=== PATIENT | male | born 1995 | race Two or more races ===

== ENCOUNTER 2023-06-02 20:39 | Emergency (ER) | payer OTHER | END 2023-06-03 01:22 | disposition left against medical advice (07) | LOC: ER 20:39 | DX: M25.522 Pain in left elbow (principal); Z53.21 Procedure and treatment not carried out due to patient leaving prior to being seen by health care provider; W18.39XA Other fall on same level, initial encounter; Y93.9 Activity, unspecified; Y92.9 Unspecified place or not applicable; Y99.9 Unspecified external cause status ==

== ENCOUNTER 2023-06-13 11:48 | Emergency (ER) | payer OTHER ==
[~2023-06-13] VITALS: Ht 170.2 cm; Wt 71.5 kg
[2023-06-13 12:17] VITALS: BP 139/88; PULSE 82; RESP 18; TEMP 98.3; O2SAT 97
[2023-06-13] MEDS ORDERED: IBUP-1456 PO (14:13)
== END 2023-06-13 14:14 | disposition home or self-care (01) ==
LOC: ER 11:48
DX: S50.02XA Contusion of left elbow, initial encounter (principal); X58.XXXA Exposure to other specified factors, initial encounter; Y93.89 Activity, other specified; Y92.89 Other specified places as the place of occurrence of the external cause; Y99.8 Other external cause status
CPT/HCPCS: 73080

== ENCOUNTER 2024-08-27 23:09 | Inpatient (IN) | payer OTHER ==
[~2024-08-27] VITALS: Ht 170.2 cm; Wt 79.8 kg
[~2024-08-27 23:09] MED LIST: IBUP-1456 PO
--- NOTE | 2024-08-27 23:22 | ED.PDOC ---
Altered Mental Status HPI Comments HPI: Poor Historian. 28 y/o M is [id number] ambulance for c/o possible overdose, today. Per EMS report, bystanders called after patient became unresponsive after taking unknown substance, earlier, this evening. Patient was stated by EMS staff to have been found on scene with bystanders performing CPR, with an initial rhythm of PEA and no tactile pulse and pinpoint pupils, and was given Narcan immediately 4 mg intranasal and 2 mg IV. Patient came back and became alert and oriented and back to his normal self. At time of assessment with patient, he comments having no recollection of events aside from being homeless and walking down a street after smoking a cigarette offered to him by some strange folks and drinking a beer before encountering 3 other individual bystanders. He denies having any chest pain, sh ortness of breath, fever, or other associated symptoms at this time. On arrival, patient is back to his baseline answering all questions appropriately. Vitals: temperature of 97.6F, pulse rate of 65, respiratory rate of 18, blood pressure of 134/87, and a SpO2 of 98% Past Medical History: denies Past Surgical History: denies Social Hx: tobacco and alcohol use REVIEW OF SYSTEMS: CONSTITUTIONAL: Denies acute: fever, diaphoresis, chills, generalized weakness. HEAD: Denies acute: headache, photophobia Eyes: Denies acute: Double vision, vision loss, eye pain, eye discharge. EARS: Denies acute: tinnitus, hearing loss, ear discharge, ear pain, THROAT: Denies acute: sore throat, swelling, difficulty swallowing , pain with swallowing, change in voice. NECK: Denies acute: neck pain, neck swelling, stiff neck. HEART: Denies acute : chest pain, palpitations, LUNGS: Denies acute: SOB, wheezing, cough, hemoptysis ABDOMEN: Denies acute: abdominal pain, Nausea, Vomiting, diarrhea, melena , hematemesis, hematochezia SKIN: Denies acute: rash, redness, lesions, itchiness. EXTREMITIES: Denies acute: calf pain, numbness, tingling, weakness, denies pain in extremity. Denies acute: Low back pain. Neuro: Denies acute: focal neurological deficit, motor or sensory focal neurological deficit, tremors, seizure like activity, confusion, dizziness, change in mental status, loss of bowel or bladder function, cauda equina like symptoms. : Denies acute: dysuria, hematuria, flank pain, increase in urinary frequency. PSYCH: Denies acute: hallucination, suicidal ideation, homicidal ideation. PHYSICAL EXAM: General: no acute distress, awake and alert. Head: normocephalic, atraumatic. Neck: supple, trachea is midline, no swelling. Throat: Normal phonation. Eyes:, no erythema, no purulent discharge, no proptosis, no icterus. Heart: regular rate, regular rhythm, no significant murmur appreciated. Lungs: no apparent respiratory distress, Able to speak in full sentences. No wheezing, no rhonchi, no crackles. No stridors Clear to auscultation bilaterally. Abdomen: non tender to palpation, non distended, soft, no guarding, no rebound, + bowel sounds. Neuro: Awake, Alert, oriented to name, self, situation, follows commands GCS=15. Speech is normal. Skin: no petechia, no purpura, no cyanosis, non-pale, not jaundice. Lower extremities: --no - Pitting edema no deformity, no focal swelling, no calf TTP. Makes eye contact. moves all four extremities. Face: no apparent facial droop. No nuchal rigidity, Kernig's sign, Brudzinski's sign, no meningeal signs. Chief Complaint: Overdose Time Seen by MD: 23:10 Reviewed Notes: Nurses Notes, Mix Technician Notes, Medications, Allergies Allergies: Coded Allergies: NO KNOWN ALLERGIES (Unverified , 06/13/23) Home Meds Active Scripts Ibuprofen (Ibuprofen) 800 Mg Tab, 1 TAB PO Q8HP PRN, #30 TAB Prov:ELIJAH VICENTE PAC 06/13/23 Information Source: Patient, Emergency Med Personnel Mode of Arrival: EMS Past Medical History PAST MEDICAL HISTORY: Denies Surgical History: Denies all surgeries Family History Family History: Reviewed,noncontributory to illness, No family hx of Cancer, No family hx of DM, No family hx of Heart alberto, No family hx of HTN, No family hx ofKidney alberto, No family hx of Liver alberto, No family hx of Lung alberto, No family hx of Stroke Social History Smoker: Non-Smoker Alcohol: Denies ETOH Use Drugs: Denies Drug Use Lives In: Home EKG EKG : Pulse Rate (adult): 63 [place]: Normal Cardiac Rhythm: NSR Block: None Hypertrophy: None ST: Normal Was a procedure done? Was a procedure done?: No Differential Diagnosis (ALOC) Differential Diagnosis: Dehydration, Hypoglycemia, DKA, Encephalopathy, Meningitis, Sepsis, Hypoxemia, Seizure, Closed Head Injury, CVA, Mass Lesion, SAH, Drug Overdose, ETOH Intoxication, Heart Failure, Renal Failure X-Ray, Labs, Meds, VS Vital Signs Date Time Temp Pulse Resp B/P (MAP) Pulse Ox O2 Delivery O2 Flow Rate FiO2 08/28/24 01:20 63 08/27/24 23:16 97.6 65 18 134/87 (103) 98 08/27/24 23:15 63 Lab Test 08/28/24 02:30 08/28/24 00:49 08/28/24 00:35 08/27/24 23:43 Range/Units Lactic Acid Level Pending 3.9 *H 0.4-2.0 mmol/L Troponin I High Sensitivity Pending 118 *H 35 </=54 ng/L Urine Color Light-yellow Yellow Urine Clarity Clear Clear Urine pH 5.5 5.0-9.0 Urine Specific [place] 1.012 1.001-1.035 Urine Protein 1+ H Negative Urine Ketones Negative Negative Urine Blood Negative Negative /uL Urine Nitrite Negative Negative Urine Bilirubin Negative Negative Urine Urobilinogen Normal Negative mg/dL Urine Leukocyte Esterase Negative Negative /uL Urine RBC <1 0 - 3 /hpf Urine Microscopic WBC 1 0-3 /HPF Urine Squamous Epithelial Cells Few <5 /hpf Urine Bacteria Few H None Seen /hpf Urine Hyaline Casts Few 0 - 2 /lpf Urine Glucose 2+ H Normal mg/dL Urine Opiates Screen Neg NEGATIVE Urine Fentanyl Screen Pos NEGATIVE Urine Barbiturates Screen Neg NEGATIVE Urine Phencyclidine Screen Neg NEGATIVE Urine Amphetamines Screen Neg NEGATIVE Urine Benzodiazepines Screen Neg NEGATIVE Urine Cocaine Screen Neg NEGATIVE Urine Cannabinoids Screen Pos NEGATIVE White Blood Count 9.4 4.4-10.8 10^3/uL Red Blood Count 4.49 L 4.5-5.90 10^6/uL Hemoglobin 13.7 13.5-17.5 g/dL Hematocrit 41.4 41.0-53.0 % Mean Corpuscular Volume 92.1 80.0-100.0 fL Mean Corpuscular Hemoglobin 30.6 28.0-32.0 pg Mean Corpuscular Hemoglobin Concent 33.2 32.0-36.0 g/dL Red Cell Distribution Width 15.1 H 11.8-14.3 % Platelet Count 286 140-450 10^3/uL Mean Platelet Volume 7.2 6.9-10.8 fL Neutrophils (%) (Auto) 67.5 37.0-80.0 % Lymphocytes (%) (Auto) 22.6 10.0-50.0 % Monocytes (%) (Auto) 7.2 0.0-12.0 % Eosinophils (%) (Auto) 2.0 0.0-7.0 % Basophils (%) (Auto) 0.7 0.0-2.0 % Neutrophils # (Auto) 6.4 1.6-8.6 10 ^3/uL Lymphocytes # (Auto) 2.1 0.4-5.4 10 ^3/uL Monocytes # (Auto) 0.7 0-1.3 10 ^3/uL Eosinophils # (Auto) 0.2 0-0.8 10 ^3/uL Basophils # (Auto) 0.1 0-0.2 10 ^3/uL Nucleated Red Blood Cells 0.0 % Sodium Level 140 136-145 mmol/L Potassium Level 3.9 3.5-5.1 mmol/L Chloride Level 106 98-107 mmol/L Carbon Dioxide Level 23 20-31 mmol/L Anion Gap 11 5-15 Blood Urea Nitrogen 11 9-23 mg/dL Creatinine 0.93 0.700-1.30 mg/dL Glomerular Filtration Rate Calc 113 >90 mL/min BUN/Creatinine Ratio 11.8 10.0-20.0 Serum Glucose 174 H 74-106 mg/dL Calcium Level 9.3 8.7-10.4 mg/dL Magnesium Level 2.2 1.6-2.6 mg/dL Total Bilirubin 0.3 0.2-1.0 mg/dL Aspartate Amino Transferase (AST) 72 H 13-40 U/L Alanine Aminotransferase (ALT) 105 H 7-40 U/L Alkaline Phosphatase 82 46-116 U/L Total Protein 6.9 5.7-8.2 g/dL Albumin 4.5 3.2-4.8 g/dL Plasma/Serum Blood Alcohol 121.6 H <10 mg/dL Current Medications Medications (Trade) Dose Ordered Sig/Guilherme Route Start Time Stop Time Status Last Admin Sodium Chloride 1,000 ml @ 1,000 mls/hr Q1H ONCE IV 08/27/24 23:30 08/28/24 00:29 DC 08/27/24 23:47 Time of 1ST Reevaluation: 23:10 Reevaluation 1ST: Unchanged Time of 2ND Reevaluation: 00:57 (Patient is awake alert at baseline ambulating independently in the ED.) Reevaluation 2ND: Improved Patient Education/Counseling: Diagnosis, Treatment Family Education/Counseling: No Family Present Comments Patient presented with the above HPI.---altered mental status/overdose---workup was initiated. patient was found with the above mentioned diagnosis. the following medications were ordered: please refer to order lists of meds and tests obtained by myself Dr. Becerril. Patient ED course and VS have been stabilized. Patient has been reassessed in the ED and remained in a stable condition. Pertinent incidental findings were discussed with the patient and/or family. Patient/family voices understanding and is agreeable with plan. Patient has been observed in the ED adequate length of time to insure improvement/stability. Escalation of care considered: Consideration of escalation to observation or admission Patient was found with elevated troponin. Patient was ADMITTED to the medicine team for further evaluation and treatment of their presentation. All the reports of any imaging studies that were ordered by myself were reviewed by myself. Departure 1 Departure Time of Disposition: 01:38 Impression: Primary Impression: Overdose Additional Impressions: Alcohol abuse Homelessness Elevated troponin Mild fentanyl abuse Disposition: ADMITTED INPATIENT Admit to: Tele Condition: Guarded Discharged With: Self Critical Care Note Critical Care Time?: Yes (45 min-critical care time only) I personally scribed for JUDITH BECERRIL DO ([email or web address]) on 08/27/24 at 23:22. Electronically submitted by Young Alvarez ([email or web address]). I personally scribed for JUDITH BECERRIL DO ([email or web address]) on 08/28/24 at 01:20. Electronically submitted by Young Alvarez ([email or web address]). JUDITH BECERRIL DO Aug 27, 2024 23:22
[2024-08-27] MEDS: SODIUM CHLORIDE 0.9% 1,000 ML IV ONE (23:47)
[2024-08-28 00:11] LABS: Basophils # (auto) 0.1 10 ^3/uL (0-0.2); Basophils % (auto) 0.7 % (0.0-2.0); Eosinophils # (auto) 0.2 10 ^3/uL (0-0.8); Hematocrit 41.4 % (41.0-53.0); Hemoglobin 13.7 g/dL (13.5-17.5); Lymphocytes # (auto) 2.1 10 ^3/uL (0.4-5.4); Lymphocytes % (auto) 22.6 % (10.0-50.0); Mean Corpuscular Hemoglobin 30.6 pg (28.0-32.0); Mean Corpuscular Hgb Conc. 33.2 g/dL (32.0-36.0); Mean Corpuscular Volume 92.1 fL (80.0-100.0); Monocytes # (auto) 0.7 10 ^3/uL (0-1.3); Monocytes % (auto) 7.2 % (0.0-12.0); Neutrophils # (auto) 6.4 10 ^3/uL (1.6-8.6); Neutrophils % (auto) 67.5 % (37.0-80.0); Platelet Count (auto) 286 10^3/uL (140-450); Red Blood Cells 4.49 10^6/uL (4.5-5.90); Red Cell Distribution Width 15.1 % (11.8-14.3); White Blood Cell 9.4 10^3/uL (4.4-10.8)
[2024-08-28 00:16] LABS: Alkaline Phosphatase 82 U/L (46-116); Anion Gap 11 (5-15); BUN/Creatinine Ratio 11.8 (10.0-20.0); Blood Urea Nitrogen 11 mg/dL (9-23); Calcium 9.3 mg/dL (8.7-10.4); Carbon Dioxide 23 mmol/L (20-31); Chloride 106 mmol/L (98-107); Magnesium 2.2 mg/dL (1.6-2.6); Potassium 3.9 mmol/L (3.5-5.1); Sodium 140 mmol/L (136-145)
[2024-08-28 00:17] LABS: Albumin 4.5 g/dL (3.2-4.8); Bilirubin, Total 0.3 mg/dL (0.2-1.0); Total Protein 6.9 g/dL (5.7-8.2)
[2024-08-28 00:26] LABS: Alanine Aminotransferase 105 U/L (7-40); Aspartate Aminotransferase 72 U/L (13-40); Glucose 174 mg/dL (74-106)
[2024-08-28 00:38] LABS: Lactic Acid w/Reflex 3.9 mmol/L (0.4-2.0)
[2024-08-28 01:22] LABS: Urine Bacteria FEW /hpf (None Seen); Urine Blood Negative /uL (Negative); Urine Clarity Clear (Clear); Urine Color Light-Yellow (Yellow); Urine Hyaline Cast FEW /lpf (0 - 2); Urine Protein, UAD 1+ (Negative); Urine Specific Gravity 1.012 (1.001-1.035); Urine Squamous Epithelial Cell FEW /hpf (<5); Urine Urobilinogen Normal (Negative); Urine WBC 1 /HPF (0-3); Urine pH 5.5 (5.0-9.0)
--- NOTE | 2024-08-28 01:28 | ECG ---
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
[2024-08-28 01:30] LABS: Cannabinoid Screen, Urine Pos (NEGATIVE)
[2024-08-28 01:44] LABS: Amphetamine Screen, Urine Neg (NEGATIVE); Barbiturate Scree,Urine Neg (NEGATIVE); Benzodiazephine Screen, Urine Neg (NEGATIVE); Cocaine Screen, Urine Neg (NEGATIVE); Opiate Scree,Urine Neg (NEGATIVE); Phencyclidine Screen, Urine Neg (NEGATIVE)
[2024-08-28] MEDS ORDERED: TEMAZEPAM 15 MG CAP PO PRN (03:45)
[2024-08-28] MEDS ORDERED: ONDANSETRON HCL 4 MG/2 ML VIAL IV PRN (03:45)
[2024-08-28] MEDS: ASPirin-EC 325mg tab PO ONE (04:54)
[2024-08-28] MEDS: NALOXONE HCL 1MG/ML 2ML SYRINGE IV ONE (04:54)
--- NOTE | 2024-08-28 05:02 | DVHHP2 ---
History of Present Illness Reason for Visit: Altered mental status History of Present Illness 28-year-old male brought in for evaluation of altered mental status post overdose. Patient was found unresponsive by bystanders. Patient was given Narcan in the field. Patient became alert oriented. Currently denies chest pain or shortness for breath. No headache blurred vision. No other acute complaints reported. Past Medical History Denies Past Surgical History Denies Family History Noncontributory Smoke: No ALCOHOL: occassional Drugs: Marijuana, Other (Fentanyl) Lives: Homeless Review of Systems Review of Systems Review of systems are currently negative otherwise addressed in HPI. Allergies: Coded Allergies: NO KNOWN ALLERGIES (Unverified , 06/13/23) Medications Current Medications Medications Dose Ordered Sig/Guilherme Route Start Time Stop Time Status Last Admin Dose Admin Aspirin 162 mg DAILY PO 08/28/24 10:00 Temazepam 15 mg QHSP PRN PO 08/28/24 03:45 Ondansetron HCl 4 mg Q4HP PRN IV 08/28/24 03:45 Exam Vital Signs Vital Signs Date Time Temp Pulse Resp B/P (MAP) Pulse Ox O2 Delivery O2 Flow Rate FiO2 08/28/24 01:20 63 08/27/24 23:16 97.6 18 134/87 (103) 98 Exam Gen: 28-year-old male in no apparent distress Skin: Warm, dry, normal color and texture, no rash. HEENT: Normocephalic atraumatic, mucous membranes moist and pink. Neck: Cervical and supraclavicular nodes normal without enlargement, trachea is midline, thyroid gland is normal without masses. Pulmonary: Clear to auscultation and percussion bilaterally. Cardiac: Regular rate and rhythm. No murmur Abdomen: Soft, nontender, nondistended, bowel sounds present all 4 quadrants, no guarding, no rigidity, no organomegaly. Extremities: No cyanosis, clubbing, no edema Neuro: Cranial nerves II through XII grossly intact, normal affect and speech, no focal motor deficits. Labs/Xrays Labs Test 08/28/24 02:30 08/28/24 00:35 08/27/24 23:43 Range/Units Lactic Acid Level 1.7 0.4-2.0 mmol/L Troponin I High Sensitivity 138 *H </=54 ng/L Urine Color Light-yellow Yellow Urine Clarity Clear Clear Urine pH 5.5 5.0-9.0 Urine Specific [place] 1.012 1.001-1.035 Urine Protein 1+ H Negative Urine Ketones Negative Negative Urine Blood Negative Negative /uL Urine Nitrite Negative Negative Urine Bilirubin Negative Negative Urine Urobilinogen Normal Negative mg/dL Urine Leukocyte Esterase Negative Negative /uL Urine RBC <1 0 - 3 /hpf Urine Microscopic WBC 1 0-3 /HPF Urine Squamous Epithelial Cells Few <5 /hpf Urine Bacteria Few H None Seen /hpf Urine Hyaline Casts Few 0 - 2 /lpf Urine Glucose 2+ H Normal mg/dL Urine Opiates Screen Neg NEGATIVE Urine Fentanyl Screen Pos NEGATIVE Urine Barbiturates Screen Neg NEGATIVE Urine Phencyclidine Screen Neg NEGATIVE Urine Amphetamines Screen Neg NEGATIVE Urine Benzodiazepines Screen Neg NEGATIVE Urine Cocaine Screen Neg NEGATIVE Urine Cannabinoids Screen Pos NEGATIVE White Blood Count 9.4 4.4-10.8 10^3/uL Red Blood Count 4.49 L 4.5-5.90 10^6/uL Hemoglobin 13.7 13.5-17.5 g/dL Hematocrit 41.4 41.0-53.0 % Mean Corpuscular Volume 92.1 80.0-100.0 fL Mean Corpuscular Hemoglobin 30.6 28.0-32.0 pg Mean Corpuscular Hemoglobin Concent 33.2 32.0-36.0 g/dL Red Cell Distribution Width 15.1 H 11.8-14.3 % Platelet Count 286 140-450 10^3/uL Mean Platelet Volume 7.2 6.9-10.8 fL Neutrophils (%) (Auto) 67.5 37.0-80.0 % Lymphocytes (%) (Auto) 22.6 10.0-50.0 % Monocytes (%) (Auto) 7.2 0.0-12.0 % Eosinophils (%) (Auto) 2.0 0.0-7.0 % Basophils (%) (Auto) 0.7 0.0-2.0 % Neutrophils # (Auto) 6.4 1.6-8.6 10 ^3/uL Lymphocytes # (Auto) 2.1 0.4-5.4 10 ^3/uL Monocytes # (Auto) 0.7 0-1.3 10 ^3/uL Eosinophils # (Auto) 0.2 0-0.8 10 ^3/uL Basophils # (Auto) 0.1 0-0.2 10 ^3/uL Nucleated Red Blood Cells 0.0 % Sodium Level 140 136-145 mmol/L Potassium Level 3.9 3.5-5.1 mmol/L Chloride Level 106 98-107 mmol/L Carbon Dioxide Level 23 20-31 mmol/L Anion Gap 11 5-15 Blood Urea Nitrogen 11 9-23 mg/dL Creatinine 0.93 0.700-1.30 mg/dL Glomerular Filtration Rate Calc 113 >90 mL/min BUN/Creatinine Ratio 11.8 10.0-20.0 Serum Glucose 174 H 74-106 mg/dL Calcium Level 9.3 8.7-10.4 mg/dL Magnesium Level 2.2 1.6-2.6 mg/dL Total Bilirubin 0.3 0.2-1.0 mg/dL Aspartate Amino Transferase (AST) 72 H 13-40 U/L Alanine Aminotransferase (ALT) 105 H 7-40 U/L Alkaline Phosphatase 82 46-116 U/L Total Protein 6.9 5.7-8.2 g/dL Albumin 4.5 3.2-4.8 g/dL Plasma/Serum Blood Alcohol 121.6 H <10 mg/dL Assessment/Plan Assessment/Plan Assessment Toxic encephalopathy Polysubstance abuse Alcohol intoxication Elevated troponin, demand ischemia Plan Admit the patient to telemetry to the hospitalist Maintenance IV fluids Follow poison control recommendations Continue treatment per orders. Plan discussed with: Patient My Orders Orders - JENNIE THURMAN Procedure Category Date Status Time Aspirin Tablet PHA 08/28/24 In Process 10:00 Regular Diet DIET 08/28/24 Transmitted Breakfast Basic Metabolic Panel LAB 08/29/24 Verified 04:00 Admit ADMIT 08/28/24 Transmitted 03:45 Temazepam (Restoril) PHA 08/28/24 In Process 03:45 Ondansetron Hcl PHA 08/28/24 In Process (Zofran) 03:45 Condition: Fair YASH 08/28/24 In Process 03:45 Bedrest With Bathroom YASH 08/28/24 In Process Privileg 03:45 Date of Service: Aug 28, 2024 Billing Provider: JENNIE THURMAN Common Visit Codes: [id number] INP/OBS CARE (HIGH) JENNIE THURMAN Aug 28, 2024 05:01
[2024-08-28 05:13] VITALS: O2SAT 98
[2024-08-28] MEDS: ASPirin 81 mg TAB PO SCH (10:09)
[2024-08-28 16:09] LABS: Alkaline Phosphatase 78 U/L (46-116); Anion Gap 11 (5-15); BUN/Creatinine Ratio 11.7 (10.0-20.0); Blood Urea Nitrogen 11 mg/dL (9-23); Calcium 9.4 mg/dL (8.7-10.4); Carbon Dioxide 24 mmol/L (20-31); Glucose 90 mg/dL (74-106); Potassium 4.1 mmol/L (3.5-5.1); Sodium 143 mmol/L (136-145)
--- NOTE | 2024-08-28 16:09 | DVHPN2 ---
Subjective Patient denies any symptoms at this time Reviewed: Care Plan, H&P, Labs, Medications Changes from previous H/P or p: No Changes General: Per HPI Objective Vitals Vital Signs Date Time Temp Pulse Resp B/P (MAP) Pulse Ox O2 Delivery O2 Flow Rate FiO2 08/28/24 08:29 99.0 60 16 140/88 (105) 97 99.0 08/28/24 05:13 Room Air* 0 21 Intake/Output Intake and Output 08/28/24 07:00 Intake Total 1000 ml Balance 1000 ml Intake IV Total 1000 ml General Appearance: Alert, Oriented X3, Cooperative, No acute distress, mild distress HEENT: Atraumatic, PERRLA Cardiovascular: Normal S1, Normal S2 Abdomen: Normal bowel sounds, Soft, No tenderness Musculoskeletal: Normal sensory function, Normal motor function Neuro: Normal gait, Normal speech Psych/Mental Status: Mental status NL, Mood NL Medications Current Medications Medications Dose Ordered Sig/Guilherme Route Start Time Stop Time Status Last Admin Dose Admin Aspirin 162 mg DAILY PO 08/28/24 10:00 08/28/24 10:09 162 MG Temazepam 15 mg QHSP PRN PO 08/28/24 03:45 Ondansetron HCl 4 mg Q4HP PRN IV 08/28/24 03:45 Folic Acid 1 mg/ Multivitamins 10 ml/Magnesium Sulfate 8 meq/ Thiamine HCl 100 mg/Dextrose 1,013.2 ml @ 125.001 mls/hr DAILY@1800 INJ 08/28/24 15:00 Laboratory Results Laboratory Tests 08/27/24 23:43 Chemistry Test 08/27/24 23:43 08/28/24 00:49 Albumin 4.5 g/dL (3.2-4.8) Pending Calcium Level 9.3 mg/dL (8.7-10.4) Pending Magnesium Level 2.2 mg/dL (1.6-2.6) Total Protein 6.9 g/dL (5.7-8.2) Pending LFT Test 08/27/24 23:43 08/28/24 00:49 Alanine Aminotransferase (ALT) 105 U/L (7-40) H Pending Alkaline Phosphatase 82 U/L (46-116) Pending Aspartate Amino Transferase (AST) 72 U/L (13-40) H Pending Total Bilirubin 0.3 mg/dL (0.2-1.0) Pending Urinalysis Test 08/28/24 00:35 Urine Color Light-yellow (Yellow) Urine Clarity Clear (Clear) Urine pH 5.5 (5.0-9.0) Urine Specific [place] 1.012 (1.001-1.035) Urine Protein 1+ (Negative) H Urine Ketones Negative (Negative) Urine Blood Negative /uL (Negative) Urine Nitrite Negative (Negative) Urine Bilirubin Negative (Negative) Urine Urobilinogen Normal mg/dL (Negative) Urine Leukocyte Esterase Negative /uL (Negative) Urine RBC <1 /hpf (0 - 3) Urine Microscopic WBC 1 /HPF (0-3) Urine Squamous Epithelial Cells Few /hpf (<5) Urine Bacteria Few /hpf (None Seen) H Urine Hyaline Casts Few /lpf (0 - 2) Urine Glucose 2+ mg/dL (Normal) H Labs and/or images reviewed: Labs reviewed by me, Image(s) reviewed by me Assessment/Plan Assessment/Plan Impression: - Toxic metabolic encephalopathy -NSTEMI type 2 -polysubstance abuse -lactic acidosis Plan: -start banana bag -recheck CMP, CK -lifestyle modification education: Patient educated on the need to stop using illicit drugs, 10 minutes spent. -nicotine patch -reassess for discharge in a.m. Total time spent with patient discussing and formulating plan of care: 35 minutes. This medical document was created using an electronic medical record system with [employer] dictation system. Although this document has been carefully reviewed, there may still be some phonetic and typographical errors. These areas are purely typographical due to imperfections of the software programs, and do not reflect any compromise in the patient's medical care. Plan discussed with: Patient, Other (RN) My Orders Orders - ANALI VALENTE NP Procedure Category Date Status Time Folic Acid... PHA 08/28/24 In Process 15:00 Comprehensive LAB 08/28/24 In Process Metabolic Panel 15:42 Creatine Kinase LAB 08/28/24 In Process 15:42 Acetaminophen LAB 08/28/24 In Process 15:42 Date of Service: Aug 28, 2024 Billing Provider: ANALI VALENTE NP Common Visit Codes: [id number] INP/OBS CARE(HIGH) ANALI VALENTE NP Aug 28, 2024 16:09
[2024-08-28 16:10] LABS: Total Protein 7.2 g/dL (5.7-8.2)
[2024-08-28 16:17] LABS: Alanine Aminotransferase 113 U/L (7-40); Albumin 4.9 g/dL (3.2-4.8); Aspartate Aminotransferase 76 U/L (13-40); Bilirubin, Total 0.3 mg/dL (0.2-1.0); Chloride 108 mmol/L (98-107); Creatine Kinase IFCC 245 U/L (46-171)
[2024-08-28] MEDS: FOLIC ACID 1 MG, MULTIPLE VITAMIN 10 ML, MAGNESIUM SULF SDV 50% 8 MEQ, THIAMINE INJ 100... INJ SCH (16:40)
[2024-08-28 18:44] VITALS: BP 140/81; PULSE 55; RESP 18; TEMP 98.4; O2SAT 97
[2024-08-28 18:45] VITALS: BP 140/82; PULSE 71; RESP 71; TEMP 99.6; O2SAT 98
[2024-08-28 19:00] VITALS: RESP 18; O2SAT 97
[2024-08-28 22:30] VITALS: PULSE 55; RESP 18; O2SAT 97
[2024-08-29 01:00] VITALS: BP 124/63; PULSE 63; RESP 18; TEMP 98.3; O2SAT 97
[2024-08-29 05:00] VITALS: BP 110/69; PULSE 65; RESP 20; TEMP 98.6; O2SAT 97
[2024-08-29 07:25] LABS: Chloride 102 mmol/L (98-107); Potassium 4.2 mmol/L (3.5-5.1); Sodium 138 mmol/L (136-145)
[2024-08-29 07:26] LABS: Anion Gap 7 (5-15); Calcium 10.2 mg/dL (8.7-10.4); Carbon Dioxide 29 mmol/L (20-31)
[2024-08-29 07:31] LABS: BUN/Creatinine Ratio 8.7 (10.0-20.0); Blood Urea Nitrogen 9 mg/dL (9-23); Glucose 98 mg/dL (74-106)
[2024-08-29 09:00] VITALS: BP 131/75; PULSE 56; RESP 17; TEMP 98; O2SAT 97
--- NOTE | 2024-08-29 12:59 | DVHDS2 ---
Discharge Summary Date of Admission Aug 28, 2024 at 03:45 Date of Discharge: Aug 29, 2024 Admitting Diagnosis Toxic metabolic encephalopathy Labs/Diagnostic Data: Laboratory Results Test 08/29/24 06:43 08/28/24 17:21 08/28/24 02:30 08/28/24 00:49 Sodium Level 138 mmol/L (136-145) Potassium Level 4.2 mmol/L (3.5-5.1) Chloride Level 102 mmol/L (98-107) Carbon Dioxide Level 29 mmol/L (20-31) Anion Gap 7 (5-15) Blood Urea Nitrogen 9 mg/dL (9-23) Creatinine 1.04 mg/dL (0.700-1.30) Glomerular Filtration Rate Calc 99 mL/min (>90) BUN/Creatinine Ratio 8.7 (10.0-20.0) Serum Glucose 98 mg/dL (74-106) Calcium Level 10.2 mg/dL (8.7-10.4) Acetaminophen Level 3.0 UG/ML (10.0-20.0) Lactic Acid Level 1.7 mmol/L (0.4-2.0) Troponin I High Sensitivity 138 ng/L (</=54) Total Bilirubin 0.3 mg/dL (0.2-1.0) Aspartate Amino Transferase (AST) 76 U/L (13-40) Alanine Aminotransferase (ALT) 113 U/L (7-40) Alkaline Phosphatase 78 U/L (46-116) Creatine Kinase 245 U/L (46-171) Total Protein 7.2 g/dL (5.7-8.2) Albumin 4.9 g/dL (3.2-4.8) Test 08/28/24 00:35 08/27/24 23:43 Urine Color Light-yellow (Yellow) Urine Clarity Clear (Clear) Urine pH 5.5 (5.0-9.0) Urine Specific Saff[place] 1.012 (1.001-1.035) Urine Protein 1+ (Negative) Urine Ketones Negative (Negative) Urine Blood Negative /uL (Negative) Urine Nitrite Negative (Negative) Urine Bilirubin Negative (Negative) Urine Urobilinogen Normal mg/dL (Negative) Urine Leukocyte Esterase Negative /uL (Negative) Urine RBC <1 /hpf (0 - 3) Urine Microscopic WBC 1 /HPF (0-3) Urine Squamous Epithelial Cells Few /hpf (<5) Urine Bacteria Few /hpf (None Seen) Urine Hyaline Casts Few /lpf (0 - 2) Urine Glucose 2+ mg/dL (Normal) Urine Opiates Screen Neg (NEGATIVE) Urine Fentanyl Screen Pos (NEGATIVE) Urine Barbiturates Screen Neg (NEGATIVE) Urine Phencyclidine Screen Neg (NEGATIVE) Urine Amphetamines Screen Neg (NEGATIVE) Urine Benzodiazepines Screen Neg (NEGATIVE) Urine Cocaine Screen Neg (NEGATIVE) Urine Cannabinoids Screen Pos (NEGATIVE) White Blood Count 9.4 10^3/uL (4.4-10.8) Red Blood Count 4.49 10^6/uL (4.5-5.90) Hemoglobin 13.7 g/dL (13.5-17.5) Hematocrit 41.4 % (41.0-53.0) Mean Corpuscular Volume 92.1 fL (80.0-100.0) Mean Corpuscular Hemoglobin 30.6 pg (28.0-32.0) Mean Corpuscular Hemoglobin Concent 33.2 g/dL (32.0-36.0) Red Cell Distribution Width 15.1 % (11.8-14.3) Platelet Count 286 10^3/uL (140-450) Mean Platelet Volume 7.2 fL (6.9-10.8) Neutrophils (%) (Auto) 67.5 % (37.0-80.0) Lymphocytes (%) (Auto) 22.6 % (10.0-50.0) Monocytes (%) (Auto) 7.2 % (0.0-12.0) Eosinophils (%) (Auto) 2.0 % (0.0-7.0) Basophils (%) (Auto) 0.7 % (0.0-2.0) Neutrophils # (Auto) 6.4 10 ^3/uL (1.6-8.6) Lymphocytes # (Auto) 2.1 10 ^3/uL (0.4-5.4) Monocytes # (Auto) 0.7 10 ^3/uL (0-1.3) Eosinophils # (Auto) 0.2 10 ^3/uL (0-0.8) Basophils # (Auto) 0.1 10 ^3/uL (0-0.2) Nucleated Red Blood Cells 0.0 % Magnesium Level 2.2 mg/dL (1.6-2.6) Plasma/Serum Blood Alcohol 121.6 mg/dL (<10) Other Laboratory Tests 08/29/24 06:43 08/27/24 23:43 Brief Hx & Hospital Course: History of Present Illness 28-year-old male brought in for evaluation of altered mental status post overdose. Patient was found unresponsive by bystanders. Patient was given Narcan in the field. Patient became alert oriented. Currently denies chest pain or shortness for breath. No headache blurred vision. No other acute complaints reported. Course of hospitalization: Patient's mentation remained normal without any reversal agents. Patient was started on banana bag, nicotine patch. Repeat CMP as well as lactic acid reveals improvement with the patient's status. Patient was agreeable to be discharged home. He was educated on the need to stop using illicit drug use. He will be provided a nicotine patch 21 mg p.o. daily for 28 days. Physical examination General: Alert and Oriented x3. No acute distress. Well-nourished. Eyes: EOMI. Anicteric. HENT: Moist mucous membranes. Lungs: Clear to auscultation bilaterally. No accessory muscle use. Cardiovascular: Regular rate and rhythm. No murmur. No JVD. Abdomen: Soft, non-tender and non-distended. No palpable masses. Extremities: No edema. Non-tender. Skin: No rashes or lesions. Warm. Neurologic: No focal neurological deficits. CN II-XII grossly intact, but not individually tested. Psychiatric: Cooperative. Appropriate mood and affect. Total time spent with patient discussing and formulating plan of care: 35 minutes. This medical document was created using an electronic medical record system with [employer] dictation system. Although this document has been carefully reviewed, there may still be some phonetic and typographical errors. These areas are purely typographical due to imperfections of the software programs, and do not reflect any compromise in the patient's medical care. Condition at Discharge: Fair Final Diagnosis/Problems List Toxic metabolic encephalopathy Discharge Disposition: Home Discharge Instruct/Medications Diet: Regular Activity: No Restrictions, As Tolerated Follow Up/Referral: PCP in 1-2 weeks Medications: nicotine 21 mg patch once daily times 28 days 36 Discharge Statement: "Patient was advised to return to the ER or call 911 if any headaches, dizziness, shortness of breath, chest pain, abdominal pain, bleeding, fevers, or worsening of medical condition. Patient was counseled about treatment plan, medications, possible side effects, patientverbalized understanding. All questions were answered to the best of my ability. This discharge took greater then 30 minutes in planning, reviewing documentation, counseling the patient, and discussing with other team members." ASSESSMENT ASSESSMENT Assessment Toxic metabolic encephalopathy Date of Service: Aug 29, 2024 Billing Provider: ANALI VALENTE NP Common Visit Codes: 59593-YOG/OBS DISCH DAY >30min ANALI VALENTE NP Aug 29, 2024 12:59
[2024-08-29 13:00] VITALS: BP 127/96; PULSE 55; RESP 18; TEMP 98.1; O2SAT 97
[2024-08-29 13:54] VITALS: TEMP 36.7
[2024-08-29] MEDS ORDERED: NIC21P TOP (14:31)
== END 2024-08-29 14:49 | disposition home or self-care (01) | DRG 812 ==
LOC: ER 23:09 → EDBD 23:09 → OVERFLOW 08-28 03:45 → WEST WING 08-28 22:33
PROVIDERS: ADMIT Nurse Practitioner; ATTEND Nurse Practitioner Acute Care
DX: T40.411A Poisoning by fentanyl or fentanyl analogs, accidental (unintentional), initial encounter (principal); G92.8 Other toxic encephalopathy; I21.A1 Myocardial infarction type 2; E87.20 Acidosis, unspecified; F10.129 Alcohol abuse with intoxication, unspecified; F17.210 Nicotine dependence, cigarettes, uncomplicated; Y90.9 Presence of alcohol in blood, level not specified; F11.10 Opioid abuse, uncomplicated; Z59.00 Homelessness unspecified; Y92.89 Other specified places as the place of occurrence of the external cause
CPT/HCPCS: 36415; 80048; 80053; 80307; 80320; 80329; 81001; 82550; 83605; 83735; 84484; 85025; 93005; 99291; G0378

== ENCOUNTER 2025-07-05 00:04 | Emergency (ER) | payer OTHER ==
[~2025-07-05] VITALS: Ht 180.3 cm; Wt 75.0 kg
[~2025-07-05 00:04] MED LIST changes: -IBUP-1456 PO; +NIC21P TOP
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
[2025-07-05 00:56] LABS: Hematocrit 42.7 % (41.0-53.0); Hemoglobin 13.9 g/dL (13.5-17.5); Mean Corpuscular Hemoglobin 29.1 pg (28.0-32.0); Mean Corpuscular Volume 89.1 fL (80.0-100.0); Nucleated Red Blood Cells % 0.1 %
[2025-07-05 01:31] VITALS: PULSE 78; RESP 18; O2SAT 97
[2025-07-05 01:51] LABS: Alanine Aminotransferase 27 U/L (7-40); Albumin 4.6 g/dL (3.2-4.8); Alkaline Phosphatase 72 U/L (46-116); Anion Gap 12 (5-15); BUN/Creatinine Ratio 7.2 (10.0-20.0); Bilirubin, Total 0.3 mg/dL (0.2-1.0); Calcium 8.7 mg/dL (8.7-10.4); Carbon Dioxide 23 mmol/L (20-31); Chloride 107 mmol/L (98-107); Glucose 103 mg/dL (74-106); Potassium 3.6 mmol/L (3.5-5.1); Sodium 142 mmol/L (136-145); Total Protein 7.3 g/dL (5.7-8.2)
[2025-07-05 01:54] LABS: Blood Urea Nitrogen 6 mg/dL (9-23)
[2025-07-05 04:00] VITALS: BP 111/72; PULSE 72; RESP 18; TEMP 98.1; O2SAT 97
== END 2025-07-05 05:20 | disposition left against medical advice (07) ==
LOC: ER 00:04 → EDBD 00:04 → ER 05:20
DX: S09.8XXA Other specified injuries of head, initial encounter (principal); F10.129 Alcohol abuse with intoxication, unspecified; F12.90 Cannabis use, unspecified, uncomplicated; X58.XXXA Exposure to other specified factors, initial encounter; Y93.89 Activity, other specified; Y92.89 Other specified places as the place of occurrence of the external cause; Y99.8 Other external cause status; Y90.8 Blood alcohol level of 240 mg/100 ml or more
CPT/HCPCS: 36415; 80053; 80320; 85025